=== PATIENT | female | born 1950 | race African-American/Black ===

== ENCOUNTER 2017-11-01 11:24 | Observation (INO) | payer MEDICARE, OTHER ==
[2017-11-01 12:29] LABS: ALT (SGPT) 14 U/L (8-55); AST (SGOT) 14 U/L (5-34); Alkaline Phosphatase 76 U/L (40-150); Anion Gap 10 mmol/L (10-20); BUN (Urea Nitrogen) 11 mg/dL (9.8-20.1); Bilirubin, Total 0.7 mg/dL (0.2-1.2); Calc. Creatinine Clearance 0 mL/min (70-130); Calcium 9.8 mg/dL (7.8-10.44); Carbon Dioxide 28 mmol/L (23-31); Chloride 106 mmol/L (98-107); Estimated GFR-MDRD Greater than 90; Globulin 3.7 g/dL (2.4-3.5); Magnesium 1.9 mg/dL (1.6-2.6); Protein, Total 7.9 g/dL (6.0-8.3)
[2017-11-01 12:32] LABS: Troponin I Less than 0.010 ng/mL (< 0.028)
[2017-11-01 12:40] LABS: Band 4 % (5-11); Hematocrit 36.9 % (36.0-47.0); Mean Platelet Volume 9.2 fL (7.4-10.4); Neutrophil 54 % (42-75); Red Blood Cell (RBC) Count 4.35 mill/uL (4.20-5.40)
[2017-11-01] MEDS ORDERED: Acetaminophen 325 MG TAB PO PRN (12:54)
[2017-11-01] MEDS ORDERED: Nitroglycerin 0.4 MG TAB (25 Tab Bottle) PO PRN (12:54)
[2017-11-01 15:00] VITALS: TEMP 97.8
[2017-11-01 15:19] VITALS: BP 152/73
[2017-11-01 15:21] VITALS: BMI 37.0
[2017-11-01] MEDS ORDERED: ADENOSINE 60 MG/20 ML VIAL ONE (16:25)
--- NOTE | 2017-11-01 17:34 | NM ---
NUCLEAR MEDICINE CARDIAC STRESS WITH EF AND WALL MOTION WITHOUT REST: History: 67-year-old female with history of chest pain, hypertension and dyslipidemia. Patient was injected with 27.0 mCi Technetium 99M Sestamibi intravenously for stress images. This is an adenosine stress study. FINDINGS: Short axis, vertical long axis, horizontal long axis images demonstrate no scan evidence for infarct or ischemia. LHR: 0.47 EDV 94 ml EF 67% Myocardial perfusion wall motion: Wall motion is normal. IMPRESSION: Normal stress only cardiac SPECT with ER and wall motion. POS: [facility]
--- NOTE | 2017-11-01 19:14 | HP ---
REASON FOR ADMISSION: Chest pain. HISTORY OF PRESENTING ILLNESS: The patient gives history of left-sided chest pain which she had last evening. She was essentially walking when this happened. This lasted for a minute or so and she got complete relief, by just sitting. She did not have any shortness of breath, palpitations, PND or orthopnea. This morning after shower, patient's left-sided chest pain reappeared and the intensity was 10/10. This had radiation to the back. This concerned her due to the second episode and the intensity was worse in addition to which she had one episode of vomiting. She kind of felt better after throwing up, but did not want to stay home as this was the second episode and went to [facility]. From there, she was transferred here for higher level of care. The patient states she has had a stress test done 5 years back which was negative as far as she can remember. No complaints of cough or expectoration. No history of fever. PAST MEDICAL AND SURGICAL HISTORY: Hypothyroidism, hypertension, and hysterectomy with prior history of fibroid uterus. CURRENT MEDICATIONS: Takes Norvasc 5 mg p.o. daily, levothyroxine 200 mcg p.o. daily, valsartan with hydrochlorothiazide 160/25 mg p.o. daily, vitamin D 2000 units p.o. daily, fish oil daily, biotin 1 tab once daily. ALLERGIES: ERYTHROMYCIN. PERSONAL HISTORY: Does not abuse alcohol or drugs. No history of smoking. 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 FAMILY HISTORY: Mother has history of coronary artery disease and pacemaker. Father at the age of 89 years. He has had history of diabetes and high blood pressure. REVIEW OF SYSTEMS: The following complete review of systems was negative, unless otherwise mentioned in the HPI or below: Constitutional: Weight loss or gain, ability to conduct usual activities. Skin: Rash, itching. Eyes: Double vision, pain. ENT/Mouth: Nose bleeding, neck stiffness, pain, tenderness. Cardiovascular: Palpitations, dyspnea on exertion, orthopnea. Respiratory: Shortness of breath, wheezing, cough, hemoptysis, fever or night sweats. Gastrointestinal: Poor appetite, abdominal pain, heartburn, nausea, vomiting, constipation, or diarrhea. Genitourinary: Urgency, frequency, dysuria, nocturia. Musculoskeletal: Pain, swelling. Neurologic/Psychiatric: Anxiety, depression. Allergy/Immunologic: Skin rash, bleeding tendency. PHYSICAL EXAMINATION: GENERAL: The patient is a 67-year-old female who is currently not in any acute distress and is chest pain free. VITAL SIGNS: Blood pressure 138/78, pulse 56 per minute, respiratory rate 20 per minute, temperature 98.2 degrees Fahrenheit, saturating 95% on room air. NECK: Supple, no elevated JVD. HEENT: Eyes: Extraocular muscles intact. Pupils reacting to light. Oral cavity: Mucous membranes are moist. No exudates or congestion. CARDIOVASCULAR SYSTEM: S1, S2 heard. Regular rhythm. RESPIRATORY SYSTEM: Air entry 2+ bilateral. No rales or rhonchi. ABDOMEN: Soft, bowel sounds heard. No tenderness, rigidity or guarding. EXTREMITIES: No peripheral edema or calf tenderness. VASCULAR SYSTEM: Peripheral pulses 1+ bilateral. No ischemic ulcerations or gangrene. CENTRAL NERVOUS SYSTEM: No gross focal deficits seen. Patient is alert, awake , oriented x3. PSYCHIATRIC SYSTEM: The patient's mood is euthymic. No hallucinations or delusions. LABORATORY DATA AND X-RAY FINDINGS: EKG done shows normal sinus rhythm at 79 beats per minute. There are signs of LVH seen, also questionable T inversions seen in lead II, III, AVF. Two sets of cardiac enzymes are negative. Albumin is 4.0. Chest x-ray done shows no acute cardiopulmonary abnormalities. Electrolytes: Potassium is 3.4, BUN 11, creatinine 0.6, glucose is 116, hemoglobin and hematocrit 12 and 36, platelet count is 177 with white count of 7 , MCV is 84 with 54% neutrophils. CLINICAL IMPRESSION AND PLAN: The patient will be admitted to telemetry for chest pain, rule out acute coronary syndrome. She has had 2 sets of cardiac enzymes which are negative. Patient appears to have mild EKG changes and she will be closely monitored. We will obtain a nuclear stress test today. If her stress test is normal, she will be shortly discharged home. It is unclear if patient will be a 2-day stress test due to her body habitus or if she can get both portions done today. She will be closely monitored on telemetry. Her stress test showed normal EF with no scar or signs of ischemia. She will be discharged home shortly. Please note this is a same day observation admit and discharge note. AISHA
[2017-11-01] MEDS ORDERED: Famotidine 20 MG TAB PO SCH (21:00)
[2017-11-02] MEDS ORDERED: Enoxaparin Sodium 40 MG/0.4 ML SYRINGE SC SCH (09:00)
[2017-11-02] MEDS ORDERED: Aspirin 325 MG TAB PO SCH (09:00)
== END 2017-11-01 17:35 | disposition home or self-care (01) ==
LOC: ERS 11:24 → 2SW 12:21
PROVIDERS: ADMIT Internal Medicine; ATTEND Internal Medicine
DX: R07.89 Other chest pain (principal); E03.9 Hypothyroidism, unspecified; I10 Essential (primary) hypertension; Z88.1 Allergy status to other antibiotic agents; Z79.899 Other long term (current) drug therapy; Z90.710 Acquired absence of both cervix and uterus; Z82.49 Family history of ischemic heart disease and other diseases of the circulatory system
CPT/HCPCS: 36415; 78452; 83735; 93005; 93017; A9500; G0378; J0153

== ENCOUNTER 2017-11-05 08:00 | Outpatient (CLI) | payer OTHER | END 2017-11-05 08:01 | disposition home or self-care (01) | LOC: BICULT 08:00 | PROVIDERS: ATTEND Urology | DX: D30.01 Benign neoplasm of right kidney (principal); N28.1 Cyst of kidney, acquired; R31.29 Other microscopic hematuria | CPT/HCPCS: 36415; 80048; 81001; 87086; 88112 ==

== ENCOUNTER 2018-06-14 14:37 | Outpatient (CLI) | payer OTHER | END 2018-06-14 14:38 | disposition home or self-care (01) | LOC: BICMAMMO 14:37 | PROVIDERS: ATTEND Internal Medicine | DX: Z12.31 Encounter for screening mammogram for malignant neoplasm of breast (principal); R92.1 Mammographic calcification found on diagnostic imaging of breast | CPT/HCPCS: 77063; 77067 ==

== ENCOUNTER 2018-12-01 14:45 | Outpatient (CLI) | payer OTHER ==
--- NOTE | 2018-12-01 16:25 | RAD ---
LEFT KNEE FOUR VIEWS: 12/01/18 HISTORY: Left knee pain. FINDINGS: Joint spaces are preserved. Minimal tricompartmental osteophytosis. No acute fracture, dislocation, o r fluid distention of the suprapatellar bursa. IMPRESSION: Minimal osteoarthritic changes. No acute osseous abnormalities are demonstrated. POS: [facility]
--- NOTE | 2018-12-01 16:29 | RAD ---
LEFT ANKLE 3 VIEWS: Date: 12/01/18 HISTORY: Arthritis. COMPARISON: None. FINDINGS: There is advanced degenerative disease of the tibiotalar joint with sclerosis and height loss. No acu te fracture or malalignment. There is volume loss of the lateral navicular. IMPRESSION: 1. No acute fracture or malalignment. 2. 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 3. Volume loss of lateral navicular, which can be sequelae of osteonecrosis. POS: [facility]
--- NOTE | 2018-12-01 16:31 | RAD ---
LEFT LOWER LEG 2 VIEWS: Date: 12/01/18 HISTORY: Leg pain. Arthritis. FINDINGS: Tibia and fibula are intact. Very mild osteophytosis of the tibial spines. No acute fracture, disloca tion, or aggressive osseous erosions. IMPRESSION: No acute osseous abnormalities are demonstrated. POS: [facility]
--- NOTE | 2018-12-01 16:32 | RAD ---
3 VIEWS LEFT FOOT: Date: 12/01/18 HISTORY: Arthritis, pain. FINDINGS: AP, lateral, and oblique views of the left foot obtained. Three views of the left foot demonstrate no evidence of left foot fractures, subluxations, or bony le sions. IMPRESSION: Normal 3 views left foot. POS: [facility]
--- NOTE | 2018-12-01 16:34 | RAD ---
2 VIEWS CHEST: Date: 12/01/18 HISTORY: Hypertension. FINDINGS: Comparison made to previous exam from 07/25/16. PA and lateral views of chest obtained and demonstrate ectasia of the aorta. Some areas of scarring s een in the left upper lobe and lingula. No evidence of acute intrathoracic abnormality seen. No evide nce of effusions, pneumonia, or pneumothorax seen. IMPRESSION: Areas of likely lung parenchymal scar, but no evidence of acute intrathoracic abnormality seen. POS: [facility]
--- NOTE | 2018-12-01 16:40 | ULT ---
RENAL ULTRASOUND: 12/01/18 HISTORY: Renal cyst. Renal oncocytoma. Multiple longitudinal and transverse images of the kidneys is obtained using a multihertz curvilinear transducer. Real time color flow images obtained. Comparison made to a previous exam from 11/05/17. Multiple longitudinal and transverse images of the kidneys is obtained using a multihertz curvilinear transducer. Real time color flow images demonstrate both kidneys to be of normal contour, axis and s ize. Right kidney measuring 10.0 and left kidney 12.0 cm from pole to pole. There is a small area of hypodensity in the upper pole of the right kidney measuring 1.8 x 1.2 x 1.8 cm. This may present a po ssible cyst or hypoechoic mass. Correlation with pre and postcontrast enhanced CT images of the kidne ys may be of use to further characterize. IMPRESSION: Possible upper pole right renal cyst or mass. Correlate with pre and postcontrast enhanced CT images of the abdomen. The urinary bladder is unremarkable. Both ureteral jets visualized. POS: [facility]
== END 2018-12-01 14:46 | disposition home or self-care (01) ==
LOC: ULT 14:45
PROVIDERS: ATTEND Urology
DX: I10 Essential (primary) hypertension (principal); M17.12 Unilateral primary osteoarthritis, left knee; M25.872 Other specified joint disorders, left ankle and foot; M87.9 Osteonecrosis, unspecified; D30.01 Benign neoplasm of right kidney; N28.1 Cyst of kidney, acquired; M25.569 Pain in unspecified knee
CPT/HCPCS: 36415; 71046; 76770; 80048; 81003; 81015; 84550; 87086; 88112

== ENCOUNTER 2018-12-08 10:42 | Outpatient (CLI) | payer OTHER ==
[~2018-12-08 10:42] MED LIST: Iopamidol 370 76% 100 ML VIAL ONE
--- NOTE | 2018-12-08 12:55 | CT ---
CT ABDOMEN WITH AND WITHOUT CONTRAST ENHANCEMENT: HISTORY: Abnormal ultrasound examination with possible upper pole right renal mass demonstrated. COMPARISON: Renal ultrasound examination from 12/01/2018. CT study from 12/28/2015. FINDINGS: The liver and spleen show no focal abnormalities. The pancreas shows no evidence of mass or ductal d ilatation, and the gallbladder region appears unremarkable. Right and left adrenal glands are normal. The left kidney is normal in size and appearance. The rig ht kidney shows postoperative changes in the upper pole region of the right kidney. There is some co rtical scarring and calcification. In reviewing the previous CT examination that was performed on , this is a fairly similar appearance. Directly inferior to this area of cortical scarring i s a small hypodensity, which is slightly larger than on the previous examination. It measured 5 mm o n the previous study and now measures 8 mm; however, it has the appearance of a small cyst. It does not show any definite enhancement. The changes on the ultrasound examination were probably related t o the area of cortical scarring. There is no significant periaortic or mesenteric adenopathy. IMPRESSION: Cortical scarring in the upper pole region of the right kidney, stable as compared to the CT examinat ion from 2015. There is also a small cyst seen in the mid to upper pole region of the right kidney. POS: [facility]
== END 2018-12-08 10:43 | disposition home or self-care (01) ==
LOC: SCSCT 10:42
PROVIDERS: ATTEND Urology
DX: N28.1 Cyst of kidney, acquired (principal); D30.01 Benign neoplasm of right kidney; N28.89 Other specified disorders of kidney and ureter
CPT/HCPCS: 74170; Q9967

== ENCOUNTER 2019-06-30 14:33 | Outpatient (CLI) | payer OTHER ==
--- NOTE | 2019-06-30 15:11 | MMO ---
Bilateral MAMMO Bilat Screen [facility]. CLINICAL HISTORY: Patient is 69 years old and is seen for screening. The patient has no family history of breast cancer. The patient has no personal history of cancer. VIEWS: The views performed were: bilateral craniocaudal with tomosynthesis and bilateral mediolateral oblique with tomosynthesis. FILMS COMPARED: The present examination has been compared to prior imaging studies performed at [facility] on 03/09/2008, 03/12/2009 and 06/14/2018, and at [facility] on 02/04/2007. MAMMOGRAM FINDINGS: There are scattered fibroglandular densities. There are no suspicious masses, suspicious calcifications, or new areas of architectural distortion. IMPRESSION: THERE IS NO MAMMOGRAPHIC EVIDENCE OF MALIGNANCY. A ROUTINE FOLLOW-UP MAMMOGRAM IN 1 YEAR IS RECOMMENDED. THE RESULTS OF THIS EXAM WERE SENT TO THE PATIENT. ACR BI-RADS Category 1 - Negative MAMMOGRAPHY NOTE: 1. A negative mammogram report should not delay a biopsy if a dominant of clinically suspicious mass is present. 2. Approximately 10% to 15% of breast cancers are not detected by mammography. 3. Adenosis and dense breasts may obscure an underlying neoplasm. Reported by: JYOTI CROSS MD Electonically Signed: [id number]
== END 2019-06-30 14:34 | disposition home or self-care (01) ==
LOC: BICMAMMO 14:33
PROVIDERS: ATTEND Internal Medicine
DX: Z12.31 Encounter for screening mammogram for malignant neoplasm of breast (principal)
CPT/HCPCS: 77063; 77067

== ENCOUNTER 2019-09-14 07:17 | Outpatient (CLI) | payer OTHER ==
--- NOTE | 2019-09-14 09:11 | ULT ---
THYROID ULTRASOUND: Date; 09/14/19 HISTORY: Thyroid nodule. COMPARISON: 07/30/06. FINDINGS: Diffuse heterogeneity throughout the entire thyroid gland. Dominant nodule is not appreciated. Thyroid isthmus measures 1.0 cm. Right thyroid lobe measures 6.1 x 2.4 x 2.8 cm. Left thyroid lobe measures 6.6 x 3.2 x 2.4 cm. IMPRESSION: Diffuse heterogeneity throughout the thyroid gland. POS: [facility]
== END 2019-09-14 07:18 | disposition home or self-care (01) ==
LOC: ULT 07:17
PROVIDERS: ATTEND Internal Medicine
DX: E04.1 Nontoxic single thyroid nodule (principal)
CPT/HCPCS: 76536

== ENCOUNTER 2019-10-24 08:03 | Outpatient (CLI) | payer OTHER ==
--- NOTE | 2019-10-24 10:51 | CT ---
CT CHEST WITH CONTRAST: HISTORY: Thyroid nodule. COMPARISON: None. FINDINGS: The visualized brain parenchyma and orbits are unremarkable. Mild mucosal thickening in the visualized paranasal sinuses. Old right lamina papyracea fracture. Carri quate mastoid air cell aeration. Unremarkable nasopharynx. Aerodigestive tract is patent. No obvious masses in the oral cavity. [place] e fatty raphe of the tongue is preserved. Epiglottis has a normal caliber. Pre-epiglottic fat is pres erved. There does appear to be mild asymmetric fullness at the level of the false vocal cords. Questi onable posterior right submucosal lesion (axial image #35). Despite there being a posterior right sub mucosal lesion, the right piriform sinus appears to be aerated. The left piriform sinus is obscured. The true vocal cords appear to be unremarkable. Symmetric attenuation of the parotid and submandibular glands. Minimal heterogeneity of the right thyroid lobe without discrete mass. Non-emergent thyroid ultrasoun d is recommended for better interrogation. The thyroid gland appears to be mildly enlarged. The great vessels of the neck are unremarkable. No evidence of lymphadenopathy based upon size criteria. There are varying degrees of significant central canal stenosis and neural foraminal narrowing on the basis of degenerative change. Cervical spine vertebral body height is maintained. No fracture. Strai ghtening of normal cervical lordosis may be due to patient position. The upper mediastinum and lung a pices are unremarkable. IMPRESSION: 1. Mild asymmetric fullness involving the right posterior false vocal cord/subglottic larynx. Direct visualization is recommended. 2. Minimal heterogeneity of the thyroid gland. Non-emergent thyroid ultrasound. There is evidence of intrathoracic extension, suggesting substernal location. 3. Mild thyromegaly. POS: [facility]
--- NOTE | 2019-10-24 10:57 | CT ---
CT CHEST WITH IV CONTRAST: HISTORY: Thyroid nodule. COMPARISON: CT pulmonary angiogram from 01/29/2012. CT chest from 07/17/2011. FINDINGS: Enlarged thyroid gland with intrathoracic extension is again seen. No mediastinal, hilar or axillary lymphadenopathy is noted. No pleural epicardial effusions are identified. There are vascular calcific ations without evidence of aneurysmal dilatation of the thoracic aorta. Chronic changes in the lungs are again noted. No lobar consolidation, pneumothoraces or lung masses/nodules are identified. Upper abdominal tomograms demonstrate scarring in the right upper kidney. There are degenerative changes in the spine. IMPRESSION: 1. Stable goiter with intrathoracic extension. 2. Chronic parenchymal changes. POS: [facility]
[2019-10-24] MEDS ORDERED: Iopamidol-370 76% 500 ML 1 ML ONE (11:32)
== END 2019-10-24 08:04 | disposition home or self-care (01) ==
LOC: BICCT 08:03
PROVIDERS: ATTEND Internal Medicine
DX: E04.1 Nontoxic single thyroid nodule (principal); E01.0 Iodine-deficiency related diffuse (endemic) goiter
CPT/HCPCS: 70491; 71260; Q9967

== ENCOUNTER 2019-10-27 18:13 | Emergency (ER) | payer OTHER ==
[2019-10-27] MEDS ORDERED: Acetaminophen 500 MG TAB ONE (19:21)
--- NOTE | 2019-10-27 19:37 | CT ---
CT HEAD WITHOUT CONTRAST: 10/27/19 HISTORY: Fall with injury to head. COMPARISON: 07/26/04. The ventricles have normal size and position. No evidence of intracranial mass or hemorrhage. Sinuses and mastoids are aerated. There is mucosa opacification of the left sphenoid sinus. Paranasal sinuse s are otherwise clear. IMPRESSION: 1. No acute intracranial abnormality. 2. Mucosal opacification of the left sphenoid sinus. POS: [facility]
--- NOTE | 2019-10-27 19:40 | CT ---
CT CERVICAL SPINE: 10/27/19 INDICATIONS: Fall with injury to head and neck. Cervical vertebrae maintain normal height and alignment. There are mild to moderate degenerative sher ges. Loss of disc space at C5-6. Posterior disc bulge and spondylosis at C5-6 is prominent and these changes compress the cord producing cervical canal stenosis and bilateral foraminal stenosis. There is no evidence of fracture. IMPRESSION: 1. Degenerative changes at C5-6 with cord compression at this level as described above. 2. No evidence of fracture. POS: [facility]
== END 2019-10-27 20:00 | disposition home or self-care (01) ==
LOC: ERS 18:13
DX: S09.90XA Unspecified injury of head, initial encounter (principal); E78.5 Hyperlipidemia, unspecified; I10 Essential (primary) hypertension; E03.9 Hypothyroidism, unspecified; W22.8XXA Striking against or struck by other objects, initial encounter
CPT/HCPCS: 70450; 72125

== ENCOUNTER 2020-07-02 14:20 | Outpatient (CLI) | payer OTHER ==
--- NOTE | 2020-07-02 14:50 | MMO ---
Bilateral MAMMO Bilat Screen [facility]. CLINICAL HISTORY: Patient is 70 years old and is seen for screening. The patient has no family history of breast cancer. The patient has no personal history of cancer. VIEWS: The views performed were: bilateral craniocaudal with tomosynthesis and bilateral mediolateral oblique with tomosynthesis. FILMS COMPARED: The present examination has been compared to prior imaging studies performed at [facility] on 06/14/2018 and 06/30/2019, and at [facility] on 05/28/2017. This study has been interpreted with the assistance of computer-aided detection. MAMMOGRAM FINDINGS: There are scattered fibroglandular densities. There are stable benign appearing calcifications seen in both breasts. There are no suspicious masses, suspicious calcifications, or new areas of architectural distortion. IMPRESSION: THERE IS NO MAMMOGRAPHIC EVIDENCE OF MALIGNANCY. A ROUTINE FOLLOW-UP MAMMOGRAM IN 1 YEAR IS RECOMMENDED. THE RESULTS OF THIS EXAM WERE SENT TO THE PATIENT. ACR BI-RADS Category 2 - Benign finding MAMMOGRAPHY NOTE: 1. A negative mammogram report should not delay a biopsy if a dominant of clinically suspicious mass is present. 2. Approximately 10% to 15% of breast cancers are not detected by mammography. 3. Adenosis and dense breasts may obscure an underlying neoplasm. Reported by: YAMILET HACKETT MD Electonically Signed: [id number]
== END 2020-07-02 14:21 | disposition home or self-care (01) ==
LOC: BICMAMMO 14:20
PROVIDERS: ATTEND Internal Medicine
DX: Z12.31 Encounter for screening mammogram for malignant neoplasm of breast (principal)
CPT/HCPCS: 77063; 77067

== ENCOUNTER 2021-05-01 10:34 | Outpatient (CLI) | payer OTHER | END 2021-05-01 10:35 | disposition home or self-care (01) | LOC: BICRAD 10:34 | PROVIDERS: ATTEND Internal Medicine | DX: M79.641 Pain in right hand (principal); M79.631 Pain in right forearm; W19.XXXA Unspecified fall, initial encounter; M19.041 Primary osteoarthritis, right hand ==

== ENCOUNTER 2021-08-19 11:46 | Outpatient (CLI) | payer OTHER | END 2021-08-19 11:47 | disposition home or self-care (01) | LOC: BICMAMMO 11:46 | PROVIDERS: ATTEND Internal Medicine | DX: Z12.31 Encounter for screening mammogram for malignant neoplasm of breast (principal) | CPT/HCPCS: 77063; 77067 ==

== ENCOUNTER 2021-10-08 13:38 | Outpatient (CLI) | payer OTHER | END 2021-10-08 13:39 | disposition home or self-care (01) | LOC: BICMAMMO 13:38 | PROVIDERS: ATTEND Internal Medicine | DX: Z13.820 Encounter for screening for osteoporosis (principal); Z78.0 Asymptomatic menopausal state; M85.851 Other specified disorders of bone density and structure, right thigh | CPT/HCPCS: 77080 ==

== ENCOUNTER 2021-11-06 15:20 | Outpatient (CLI) | payer OTHER | END 2021-11-06 15:21 | disposition home or self-care (01) | LOC: BICULT 15:20 | PROVIDERS: ATTEND Internal Medicine | DX: E04.1 Nontoxic single thyroid nodule (principal) | CPT/HCPCS: 76536 ==

== ENCOUNTER 2021-12-03 13:05 | Outpatient (CLI) | payer BC, OTHER | END 2021-12-03 13:06 | disposition home or self-care (01) | LOC: RAD 13:05 | PROVIDERS: ATTEND Internal Medicine Critical Care Medicine | DX: R06.00 Dyspnea, unspecified (principal) | CPT/HCPCS: 71046 ==

== ENCOUNTER 2022-01-01 13:00 | Outpatient (CLI) | payer BC ==
[2022-01-01 14:09] LABS: Hemoglobin 12.2 g/dL (12.0-15.5); Mean Corpuscular HGB CONC 31.9 g/dL (32.0-36.0); Mean Corpuscular Hemoglobin 26.2 pg (27.0-33.0); Mean Corpuscular Volume 82.2 fl (81.6-98.3); Mean Platelet Volume 11.3 fl (7.4-10.4); Platelet Count 186 10x3/uL (150-450); Red Blood Cell (RBC) Count 4.65 10x6/uL (3.90-5.03); White Blood Cell (WBC) Count 16.3 10x3/uL (3.5-10.5)
[2022-01-01 14:24] LABS: ALT (SGPT) 10 U/L (8-55); AST (SGOT) 11 U/L (5-34); Albumin 3.9 g/dL (3.4-4.8); Alkaline Phosphatase 72 U/L (40-110); Anion Gap 12 mmol/L (10-20); BUN (Urea Nitrogen) 22 mg/dL (9.8-20.1); Bilirubin, Total 0.5 mg/dL (0.2-1.2); Calc. Creatinine Clearance 0 mL/min (70-130); Calcium 9.4 mg/dL (7.8-10.44); Carbon Dioxide 28 mmol/L (23-31); Chloride 106 mmol/L (98-107); Glucose 87 mg/dL (80-115); Potassium 3.9 mmol/L (3.5-5.1); Protein, Total 6.9 g/dL (5.8-8.1); Sodium 142 mmol/L (136-145)
[2022-01-01 14:43] LABS: Band 9 % (5-11); Lymphocytes 7 % (21-51); Monocytes 25 % (0-10); Nucleated RBC 1 % (0); Reactive Lymphocytes 2 % (0-10)
[2022-01-01 14:44] LABS: Neutrophil 57 % (42-75)
[2022-01-01 14:45] LABS: Anisocytosis SLIGHT = 6-15 cells (100X) (0-5/hpf); Burr Cells SLIGHT = 2-5 cells (100X) (0-1/hpf); Elliptocytes SLIGHT = 2-5 cells (100X) (0-1/hpf); Microcytosis SLIGHT = 6-15 cells (100X) (0-5/hpf); Ovalocytes SLIGHT = 2-5 cells (100X) (0-1/hpf); Poikilocytosis SLIGHT = 6-15 cells (100X) (0-5/hpf); Polychromasia SLIGHT = 2-3 cells (100X) (0-2/hpf)
[2022-01-01 14:46] LABS: Large Platelets SLIGHT; MDiff Complete? YES; Platelet Morphology Comment Appears Adequate
[2022-01-02 11:59] LABS: SARS-CoV-2 PCR by NAA Not Detected (NotDetected)
== END 2022-01-01 13:01 | disposition home or self-care (01) ==
LOC: LABBT 13:00
PROVIDERS: ATTEND Optometrist
DX: Z01.812 Encounter for preprocedural laboratory examination (principal); R94.39 Abnormal result of other cardiovascular function study; Z20.822 Contact with and (suspected) exposure to COVID-19
CPT/HCPCS: 80053; 85025; U0003; U0005

== ENCOUNTER 2022-01-03 06:01 | Day surgery (SDC) | payer BC ==
[2022-01-01 10:35] VITALS: BMI 35.4
[2022-01-03] MEDS ORDERED: Heparin 10,000 UNITS/ 10 ML VIAL ONE (06:48)
[2022-01-03] MEDS ORDERED: Verapamil 5 MG/2 ML VIAL ONE (06:48)
[2022-01-03] MEDS ORDERED: Nitroglycerin 100MG/250ML BOT 250 ML ONE (06:48)
[2022-01-03] MEDS ORDERED: Lidocaine 1% (PF) 30 ML VIAL ONE (06:52)
[2022-01-03] MEDS ORDERED: Midazolam HCl 2 mg/2 ml Vial ONE (07:05)
[2022-01-03] MEDS ORDERED: Fentanyl 250 MCG/5 ML VIAL ONE (07:05)
[2022-01-03] MEDS ORDERED: Iopamidol 370 76% 100 ML VIAL ONE (10:11)
== END 2022-01-03 12:15 | disposition home or self-care (01) ==
LOC: SDC 06:01
PROVIDERS: ATTEND Internal Medicine Cardiovascular Disease
PROC: 4A023N7 Measurement of Cardiac Sampling and Pressure, Left Heart, Percutaneous Approach (ICD-10-PCS; principal; 2022-01-03)
PROC: B2111ZZ Fluoroscopy of Multiple Coronary Arteries using Low Osmolar Contrast (ICD-10-PCS; principal; 2022-01-03)
DX: I44.7 Left bundle-branch block, unspecified (principal); R94.39 Abnormal result of other cardiovascular function study; R06.09 Other forms of dyspnea; I10 Essential (primary) hypertension; E78.00 Pure hypercholesterolemia, unspecified; Z79.890 Hormone replacement therapy; Z79.899 Other long term (current) drug therapy; Z88.1 Allergy status to other antibiotic agents
CPT/HCPCS: 93458; 99152; J1644; J2001; J2250; J3010; Q9967

== ENCOUNTER 2022-09-18 14:43 | Outpatient (CLI) | payer BC | END 2022-09-18 14:44 | disposition home or self-care (01) | LOC: BICMAMMO 14:43 | PROVIDERS: ATTEND Internal Medicine | DX: Z12.31 Encounter for screening mammogram for malignant neoplasm of breast (principal) | CPT/HCPCS: 77063; 77067 ==

== ENCOUNTER 2022-12-01 13:04 | Outpatient (CLI) | payer BC | END 2022-12-01 13:05 | disposition home or self-care (01) | LOC: RAD 13:04 | PROVIDERS: ATTEND Internal Medicine Critical Care Medicine | DX: R06.00 Dyspnea, unspecified (principal) | CPT/HCPCS: 71046 ==

== ENCOUNTER 2023-01-14 15:41 | Outpatient (CLI) | payer BC, MEDICARE | END 2023-01-14 15:42 | disposition home or self-care (01) | LOC: RAD 15:41 | PROVIDERS: ATTEND Internal Medicine | DX: M54.9 Dorsalgia, unspecified (principal); I10 Essential (primary) hypertension; M47.816 Spondylosis without myelopathy or radiculopathy, lumbar region; I70.0 Atherosclerosis of aorta; M47.814 Spondylosis without myelopathy or radiculopathy, thoracic region | CPT/HCPCS: 71046; 72072; 72100 ==

== ENCOUNTER 2023-07-23 14:54 | Outpatient (CLI) | payer BC ==
[2023-07-23 16:34] LABS: Anion Gap 11 mmol/L (10-20); BUN (Urea Nitrogen) 15 mg/dL (9.8-20.1); Calc. Creatinine Clearance 0 mL/min (70-130); Calcium 8.9 mg/dL (7.8-10.44); Carbon Dioxide 25 mmol/L (23-31); Chloride 109 mmol/L (98-107); Estimated GFR 69; Glucose 99 mg/dL (83-110); Potassium 3.1 mmol/L (3.5-5.1); Sodium 142 mmol/L (136-145)
[2023-07-23 16:52] LABS: Hematocrit 33.5 % (34.9-44.5); Hemoglobin 10.5 g/dL (12.0-15.5); Mean Corpuscular HGB CONC 31.3 g/dL (32.0-36.0); Mean Corpuscular Hemoglobin 24.8 pg (27.0-33.0); Mean Corpuscular Volume 79.2 fl (81.6-98.3); Platelet Count 154 10x3/uL (150-450); RBC Distribution Width 18.3 % (11.5-14.5); Red Blood Cell (RBC) Count 4.23 10x6/uL (3.90-5.03)
[2023-07-23 17:18] LABS: Eosinophils 1 % (0-10)
[2023-07-23 17:19] LABS: Lymphocytes 15 % (21-51); Neutrophil 47 % (42-75)
[2023-07-23 17:21] LABS: Platelet Adequacy Comment Appears Adequate
[2023-07-23 17:23] LABS: Monocytes 37 % (0-10)
[2023-07-23 17:24] LABS: Anisocytosis SLIGHT = 6-15 cells (100X) (0-5/hpf)
[2023-07-23 17:25] LABS: Microcytosis SLIGHT = 6-15 cells (100X) (0-5/hpf)
[2023-07-23 17:33] LABS: Reflex for Review?? YES
== END 2023-07-23 14:55 | disposition home or self-care (01) ==
LOC: LABBT 14:54
PROVIDERS: ATTEND Surgery
DX: Z01.818 Encounter for other preprocedural examination (principal); C93.10 Chronic myelomonocytic leukemia not having achieved remission
CPT/HCPCS: 80048; 85025; 85060; 93005; 93010

== ENCOUNTER 2023-07-24 11:08 | Day surgery (SDC) | payer BC ==
[2023-07-23 15:40] VITALS: BMI 34.2
[2023-07-24] MEDS ORDERED: Sevoflurane 250 ML INH ANEST BOTTLE ONE (11:59)
[2023-07-24] MEDS ORDERED: EPINEPHrine 1 MG/ML AMP ONE (12:54)
[2023-07-24] MEDS ORDERED: Bupivacaine PF 0.5% 30 ML VIAL ONE (12:54)
[2023-07-24] MEDS ORDERED: Lidocaine 2% PF 5 ML VIAL ONE (12:54)
[2023-07-24] MEDS ORDERED: Midazolam HCl 2 mg/2 ml Vial ONE (12:55)
[2023-07-24] MEDS ORDERED: fentaNYL 50 mcg/mL 1 mL Vial ONE (12:55)
[2023-07-24] MEDS ORDERED: Sodium Chloride 0.9% 100 ML ONE (13:00)
[2023-07-24] MEDS ORDERED: CEFAZOLIN 2 GM VIAL ONE (13:00)
[2023-07-24] MEDS ORDERED: Bupivacaine 0.25% HCL 30 ML VIAL ONE (13:13)
[2023-07-24] MEDS ORDERED: Propofol 500 MG/50 ML VIAL ONE (13:37)
[2023-07-24] MEDS ORDERED: HYDROcodone/Acetaminophen 5/325 mg Tablet ONE ×2 (14:25→15:15)
== END 2023-07-24 15:31 | disposition home or self-care (01) ==
LOC: SDC 11:08
PROVIDERS: ATTEND Surgery
PROC: 0JH60WZ Insertion of Totally Implantable Vascular Access Device into Chest Subcutaneous Tissue and Fascia, Open Approach (ICD-10-PCS; principal; 2023-07-24)
DX: C93.10 Chronic myelomonocytic leukemia not having achieved remission (principal); I10 Essential (primary) hypertension; E78.5 Hyperlipidemia, unspecified
CPT/HCPCS: 71045; C1788; J0171; J1642; J2001; J2250; J2704; J3010; J3490; S0020

== ENCOUNTER 2023-12-17 08:13 | Outpatient (CLI) | payer BC | END 2023-12-17 08:14 | disposition home or self-care (01) | LOC: RAD 08:13 | PROVIDERS: ATTEND Internal Medicine Critical Care Medicine | DX: R06.00 Dyspnea, unspecified (principal); I51.7 Cardiomegaly; J98.11 Atelectasis | CPT/HCPCS: 71046 ==

== ENCOUNTER 2024-01-25 | Outpatient (CLI) | payer BC | END 2024-01-25 08:08 | disposition home or self-care (01) | DX: Z12.31 Encounter for screening mammogram for malignant neoplasm of breast (principal); Z13.820 Encounter for screening for osteoporosis; N64.89 Other specified disorders of breast; M85.851 Other specified disorders of bone density and structure, right thigh; Z80.3 Family history of malignant neoplasm of breast; Z85.6 Personal history of leukemia; Z78.0 Asymptomatic menopausal state ==

== ENCOUNTER 2024-02-03 08:27 | Outpatient (CLI) | payer BC | END 2024-02-03 08:28 | disposition home or self-care (01) | LOC: BICMAMMO 08:27 | PROVIDERS: ATTEND Internal Medicine | DX: N64.89 Other specified disorders of breast (principal); N60.01 Solitary cyst of right breast | CPT/HCPCS: G0279 ==

== ENCOUNTER 2025-06-20 09:16 | Outpatient (CLI) | payer BC | END 2025-06-20 09:17 | disposition home or self-care (01) | LOC: BICMAMMO 09:16 | PROVIDERS: ATTEND Internal Medicine | DX: Z12.31 Encounter for screening mammogram for malignant neoplasm of breast (principal); Z80.3 Family history of malignant neoplasm of breast; Z85.6 Personal history of leukemia | CPT/HCPCS: 77063; 77067 ==